=== PATIENT | female | born 2000 | race African-American/Black ===

== ENCOUNTER 2025-01-29 20:02 | Emergency (ER) | payer OTHER, SELFPAY ==
[2025-01-29 20:07] VITALS: BP 170/97
[2025-01-29 21:01] LABS: Hematocrit 31.9 % (37.0-47.0); Hemoglobin 9.4 g/dL (12.0-16.0); Mean Corp Hgb Conc. 29.5 g/dL (33.0-37.0); Mean Corpuscular Volume 70.9 fL (81.0-99.0); Nucleated Red Blood Cells % 0 %; Platelet Count 549 10^3/uL (130-400); Red Cell Dist. Width 18.4 % (11.5-14.5)
[2025-01-29 21:24] LABS: ALT (SGPT) 17 U/L (0-35); AST (SGOT) 29 U/L (14-36); Albumin 4.1 g/dl (3.5-5.0); Alkaline Phosphatase 60 U/L (38-126); Blood Urea Nitrogen 7 mg/dl (7-17); Calcium 10.0 mg/dl (8.4-10.2); Carbon Dioxide 26 mmol/L (22-30); Chloride 108 mmol/L (98-107); Glucose 126 mg/dl (70-99); Potassium 4.2 mmol/L (3.5-5.1); Sodium 141 mmol/L (135-145); Total Protein 7.5 g/dl (6.3-8.2); eGFR > 60.00
--- NOTE | 2025-01-29 21:55 | ED.GENMED ---
History of Present Illness
General
Chief Complaint: Swelling
Time Seen by Provider: 01/29/25 21:00
Nursing documentation reviewed up to this point in time: agreed with
History of Present Illness
History of Present Illness:
24-year-old female presents to the ER for evaluation of bilateral lower extremity edema which has been present over the last several days. Patient reports that she has not been on any of her prescription medications as she moved to [place] and
established with her new health insurance but not has not had any of her prescriptions transferred. She does take medication for hypertension and diabetes. She states that she has been trying to follow a keto diet and attempt to lose weight but
has been unsuccessful thus far. She denies any significant change in her salt intake recently. She reports mild chronic exertional dyspnea but this has been an ongoing issue for a long time. No chest pain. No syncope or trauma. No prior
personal history of venous thromboembolic disease. No family history of blood clots. She denies any change abdominal girth. No change in urine output or color.
Review of Systems
Review of Systems
Allergies reviewed?: Yes
Phy Exam
Physical Exam
Physical Exam:
Patient is awake, alert, obese, appears in no acute distress, head is normocephalic atraumatic, PERRL, EOMI, sclera anicteric, conjunctiva pink, no JVD, heart regular rate and rhythm without murmurs or ectopy, lungs are clear to auscultation without
wheezes rales or rhonchi, abdomen is soft, nontender, extremities with trace edema to the bilateral ankles, no calf pain on palpation, 2+ DP pulses present symmetric bilateral feet with brisk cap refill to the toes, GCS is 15
Course
Orders/Labs/Results
Orders:
Orders
01/29/25 20:48
CMP [Comprehensive Metabolic Panel] Urgent
Complete Blood Count/With Diff Urgent
HCG, Serum Qualitative Screen Urgent
Comment: ADD ON
01/29/25 21:18
Electrocardiogram (*1) Urgent
Reason for Study: Hypertension, Benign
EKG- Treatment ONCE
01/29/25 22:04
D-Dimer Urgent
01/29/25 22:07
Test Result ONCE
01/29/25 22:08
Prazosin HCl [Minipress] 1 mg PO NOW STA
01/29/25 22:22
Add On- LAB Urgent
Tests Added?: HCG Qual
01/29/25 23:03
Venous Doppler Lwr Ext Bilat [US Periph Venous LOWER Ext Santy] Urgent
Comment:
Reason For Exam: lower extremity edema
01/29/25 23:07
CR Chest - 2 Views Urgent
Comment:
Reason For Exam: dyspnea
Abnormal Lab Results
01/29/25 01/29/25
20:48 22:04
Hgb 9.4 L g/dL
(12.0-16.0)
Hct 31.9 L %
(37.0-47.0)
MCV 70.9 L fL
(81.0-99.0)
MCH 20.9 L pg
(27.0-31.0)
MCHC 29.5 L g/dL
(33.0-37.0)
RDW 18.4 H %
(11.5-14.5)
Plt Count 549 H 10^3/uL
(130-400)
D-Dimer 1.32 H ug/mlFEU
(0.00-0.50)
Chloride 108 H mmol/L
(98-107)
Glucose 126 H mg/dl
(70-99)
01/29/25 20:48
01/29/25 20:48
Labs are very reassuring. Patient has a history of chronic anemia, no indication for blood transfusion at the current time. Kidney function preserved.
Vital Signs
Initial and Last Documented VS:
Initial Vital Signs
Temp Pulse Resp BP Pulse Ox
99.1 F 108 20 170/97 100
01/29/25 20:07 01/29/25 20:07 01/29/25 20:07 01/29/25 20:07 01/29/25 20:07
Last Documented Vital Signs
Temp Pulse Resp BP Pulse Ox
98.2 F 82 16 127/79 100
01/29/25 22:25 01/29/25 23:03 01/29/25 23:03 01/29/25 23:00 01/29/25 23:03
MDM/Problems Addressed
Differential Diagnosis Includes:
Differential diagnosis to consider but not limited to symptomatic anemia, acute kidney injury, lymphedema, excessive salt intake, noncompliance along with other etiologies considered
Chronic conditions affecting care:
Diabetes, hypertension, obesity, polycystic ovarian syndrome
*Pulse Oximetry
SaO2: 100
Oxygen Mode of Delivery: Room air
Patient hypoxic: no
*EKG
Interpreted by ED Provider?: Yes (I independently viewed and interpreted twelve-lead EKG showing sinus rhythm with sinus arrhythmia, rate 64, normal axis, no ST elevation, this is a normal variant, no prior for comparison, no evidence for acute ST
elevation [place])
*Artificial Inseminator Interpretation
Rate: normal (I independently viewed and interpreted rhythm strip showing sinus rhythm with sinus arrhythmia)
*Critical Care Note
Total Time (30-74mins, 75-104mins- exclusive of procedures): Not Applicable
Update Note
Update Note:
Patient's bedtime medications were initially ordered, however blood pressure is normal on reevaluation. Awaiting test results for dispo
I reviewed elevated D-dimer with patient and control integration engineer present bedside along with need for venous ultrasounds. Chest x-ray still pending. I discussed with them likely discharge home if these tests are normal. I discussed with patient and her
current prescription medication list, given her blood sugar is normal here and she is on metformin likely for both insulin resistance and PCOS, will continue the metformin. Will provide patient prescription HCTZ also for treatment of bilateral
lower extremity edema. She does have a prior history of hypertension but only transient hypertension here in the ER. She expressed understanding of likely plan for discharge home. Awaiting remaining test results. Full patient care transferred to
Dr. Patel for dispo
ED Attending Note
-
Portions of this chart may have been created with voice recognition software.� Occasional wrong word or��sound alike� substitutions may have occurred due to the inherent limitations of voice recognition software.
Discharge Plan
Departure
Discharge Problem:
Leg swelling
Instructions: Swelling
Prescriptions:
New
metformin 1,000 mg tablet
1,000 mg PO BID Qty: 14 0RF
hydrochlorothiazide 12.5 mg tablet
12.5 mg PO DAILY Qty: 14 0RF
Referrals:
UNKNOWN - PT DOES,NOT KNOW [Family Provider]
Interventions
Interventions:
*Risk Screen - Suicide Last Done: 01/29/25 20:07
*General Assessment Last Done: 01/29/25 20:07
*Neglect/Abuse Screening Last Done: 01/29/25 20:07
*ED- Fall Risk Assessment Last Done: 01/29/25 20:07
*ED COVID-19 Vaccine History Last Done: 01/29/25 20:07
ED- Cardiac Assessment Last Done: 01/29/25 22:38
ED- Pulmonary Assessment Last Done: 01/29/25 22:38
ED-Skin Assessment Last Done: 01/29/25 22:39
Discharge Date and Time
Print Language: OCCITAN
[2025-01-29 22:25] VITALS: BP 124/67
[2025-01-29 22:29] VITALS: BMI 42.6
[2025-01-29 22:52] LABS: HCG, Serum Qualitative Screen Negative
[2025-01-29 22:55] LABS: D-Dimer 1.32 ug/mlFEU (0.00-0.50)
[2025-01-29 23:00] VITALS: BP 127/79
[2025-01-30 00:03] VITALS: BP 106/28
[2025-01-30 01:03] VITALS: BP 141/81
[2025-01-30 02:00] VITALS: BP 138/83
== END 2025-01-30 02:30 | disposition home or self-care (01) ==
LOC: EMR 20:02
PROVIDERS: Emergency Medicine; EMERGENCY PHYSICIAN Emergency Medicine
DX: R22.43 Localized swelling, mass and lump, lower limb, bilateral (principal); R06.09 Other forms of dyspnea; I10 Essential (primary) hypertension; E11.9 Type 2 diabetes mellitus without complications; Z59.71 Insufficient health insurance coverage
CPT/HCPCS: 99284; 71046; 80053; 84703; 85025; 85379; 93005; 93970